=== PATIENT | female | born 1990 | race Native Hawaiian/Other Pacific Islander ===

== ENCOUNTER 2017-10-03 07:13 | Outpatient (CLI) | payer OTHER ==
[2017-10-03 08:11] LABS: PLATELET COUNT 313 K/uL (152-353)
[2017-10-03 08:53] LABS: POTASSIUM 3.6 mmol/L (3.6-5.2)
== END 2017-10-03 22:00 | disposition home or self-care (01) ==
LOC: LABW 07:13
PROVIDERS: Physician Assistant
DX: G44.201 Tension-type headache, unspecified, intractable (principal); R12 Heartburn
CPT/HCPCS: 36415; 80053; 80061; 84439; 84443; 85027

== ENCOUNTER 2023-02-01 15:52 | Outpatient (CLI) | payer OTHER | END 2023-02-01 19:45 | disposition home or self-care (01) | LOC: US 15:52 | PROVIDERS: ATTEND Nurse Practitioner Family | DX: M25.472 Effusion, left ankle (principal) ==